=== PATIENT | male | born 1950 | race Caucasian/White ===

== ENCOUNTER 2018-07-21 11:15 | Day surgery (SDC) | payer MEDICARE, MEDICAID ==
[~2018-07-21 11:15] MED LIST: DOCU100C40 PO; NO HOME MEDS
[2018-07-21] MEDS ORDERED: D-MA1POW (12:32)
--- NOTE | 2018-07-21 13:00 | NUR ---
Patient arrived via wheelchair from [facility] and was admitted to outpatient wound care for physician visit with Jose Espinoza MD. Dressing removed, wound cleansed. New patient assessment completed with review of patient's medical history and current medications. Patient denies wounds to any other areas than his right ischium and left ankle and right heel. States he has a caregiver at home who assists him with dressings and ADLs. 1200 - Dr. Espinoza at bedside accompanied by RN. Wound assessed, time out performed by MD/RN. Wound debrided as detailed in the physician progress/procedure note. Plan of care discussed with patient. Dressings placed per MD orders. Patient instructed on the signs and symptoms of infection and to call the Wound Center if any occur or to go to the ED if we are closed: Increased pain in wound Increase in drainage from the wound Redness in the skin surrounding the wound Bleeding from the wound Temperature of 101 or greater Patient instructed that the weight of their body puts a large amount of pressure on their wounds. This pressure keeps the new tissue from growing and inhibits new blood vessels from forming. Explained that, if they continue to bear weight on a body part that has a wound, the time it takes to heal the wound increases, the wound may get worse or the wound may not heal at all. Patient verbalized understanding of all discharge instructions and plan of care and exited via wheelchair out to [facility] in stable condition with no sign or symptom of distress at time of discharge.
== END 2018-07-21 13:23 | disposition home or self-care (01) ==
LOC: WOUND CARE 11:15
PROVIDERS: ATTEND Surgery
DX: L89.314 Pressure ulcer of right buttock, stage 4 (principal); S91.301A Unspecified open wound, right foot, initial encounter; S91.002A Unspecified open wound, left ankle, initial encounter; G82.20 Paraplegia, unspecified; F12.10 Cannabis abuse, uncomplicated; Z98.890 Other specified postprocedural states; Z87.891 Personal history of nicotine dependence; Z90.49 Acquired absence of other specified parts of digestive tract; X58.XXXA Exposure to other specified factors, initial encounter; Y93.89 Activity, other specified; Y92.89 Other specified places as the place of occurrence of the external cause; Y99.8 Other external cause status
CPT/HCPCS: 87070; 87075; 87076; 87077; 87102; 87185; 87186; A6212; A6243

== ENCOUNTER 2018-07-24 10:30 | Day surgery (SDC) | payer MEDICARE, MEDICAID ==
[~2018-07-24 10:30] MED LIST changes: +D-MA1POW
--- NOTE | 2018-07-24 13:00 | NUR ---
Patient arrived via wheelchair accompanied by friend Thomas from [facility] and was admitted to outpatient wound care for physician visit with Jose Espinoza MD. Dressing removed, wound cleansed Patient assessed for changes in conditions, medications and medical history. 1245 - Dr. Espinoza at bedside accompanied by RN. Wound assessed, time out performed by MD/RN. Wound debrided as detailed in the physician progress/procedure note. Plan of care discussed with patient. Dressings placed per MD orders. Patient instructed on the signs and symptoms of infection and to call the Wound Center if any occur or to go to the ED if we are closed: Increased pain in wound Increase in drainage from the wound Redness in the skin surrounding the wound Bleeding from the wound Temperature of 101 or greater Patient instructed that the weight of their body puts a large amount of pressure on their wounds. This pressure keeps the new tissue from growing and inhibits new blood vessels from forming. Explained that, if they continue to bear weight on a body part that has a wound, the time it takes to heal the wound increases, the wound may get worse or the wound may not heal at all. Patient verbalized understanding of all discharge instructions and plan of care and exited via wheelchair accompanied by Thomas out to [facility] in stable condition with no sign or symptom of distress at time of discharge. Antibiotics called in by RN to [facility]. CT arranged with scheduling/household appliances service technician.
[2018-07-24] MEDS ORDERED: LEVO750T21 PO (15:01)
== END 2018-07-24 11:45 | disposition home or self-care (01) ==
LOC: WOUND CARE 10:30
PROVIDERS: ATTEND Surgery
DX: L89.314 Pressure ulcer of right buttock, stage 4 (principal); L97.321 Non-pressure chronic ulcer of left ankle limited to breakdown of skin; L97.511 Non-pressure chronic ulcer of other part of right foot limited to breakdown of skin; G82.20 Paraplegia, unspecified; F12.10 Cannabis abuse, uncomplicated; Z98.890 Other specified postprocedural states; Z87.891 Personal history of nicotine dependence; Z90.49 Acquired absence of other specified parts of digestive tract
CPT/HCPCS: 97597; A6266; A4414; A6212; A6213

== ENCOUNTER 2018-07-29 09:00 | Outpatient (CLI) | payer MEDICARE, MEDICAID ==
[~2018-07-29 09:00] MED LIST changes: -DOCU100C40 PO; +LEVO750T21 PO; -NO HOME MEDS
[2018-07-29] MEDS ORDERED: LIDOcaine/PRILOcaine 5gm cream TP ONE (11:19)
--- NOTE | 2018-07-29 14:12 | NUR ---
[facility] Patient admitted to outpatient wound care clinic for physician visit with Jose Espinoza MD. Dressing removed, wound cleansed and Emla cream applied per order. Patient assessed for changes in conditions, medications and medical history. Dr. Espinoza at bedside accompanied by RN. Wound assessed and no debridement was done. Plan of care discussed with patient. Dressings placed per MD orders. Patient instructed on the signs and symptoms of infection and to call the Wound Center if any occur or to go to the ED if we are closed: Increased pain in wound Increase in drainage from the wound Redness in the skin surrounding the wound Bleeding from the wound Temperature of 101 or greater Patient instructed that the weight of their body puts a large amount of pressure on their wounds. This pressure keeps the new tissue from growing and inhibits new blood vessels from forming. Explained that, if they continue to bear weight on a body part that has a wound, the time it takes to heal the wound increases, the wound may get worse or the wound may not heal at all. Patient verbalized understanding of all discharge instructions and plan of care. Patient left in stable condition with no sign or symptom of distress at time of discharge. Addendum: 07/29/18 at 1415 by Susan Boothe RN Amended: Links added.
== END 2018-07-29 12:48 | disposition home or self-care (01) ==
LOC: WOUND CARE 09:00 → EDSTATUS 10:30 → WOUND CARE 12:48
PROVIDERS: ATTEND Surgery
DX: L89.314 Pressure ulcer of right buttock, stage 4 (principal); L97.321 Non-pressure chronic ulcer of left ankle limited to breakdown of skin; L97.511 Non-pressure chronic ulcer of other part of right foot limited to breakdown of skin; L97.411 Non-pressure chronic ulcer of right heel and midfoot limited to breakdown of skin; G82.20 Paraplegia, unspecified; F12.10 Cannabis abuse, uncomplicated; Z98.890 Other specified postprocedural states; Z87.891 Personal history of nicotine dependence; Z90.49 Acquired absence of other specified parts of digestive tract
CPT/HCPCS: A6266; G0463; A6021; A6206; A6212; A6243

== ENCOUNTER 2018-07-31 08:37 | Outpatient (CLI) | payer MEDICARE, MEDICAID ==
[2018-07-31] MEDS ORDERED: diatrozoate meglu/diatrozoate sod (37% iodine) 120ML oral solution ONE (09:24)
--- NOTE | 2018-07-31 11:30 | NUR ---
Patient arrived via wheelchair accompanied by his brother from [facility] and was admitted to outpatient wound care for physician visit with Jose Espinoza MD. Dressing removed, wound cleansed. Patient assessed for changes in conditions, medications and medical history. 1025 - Dr. Espinoza at bedside accompanied by RN. Wound assessed, time out performed by MD/RN. Procedure performed as detailed in the physician progress/procedure note. Plan of care discussed with patient. Dressings placed per MD orders. Patient instructed on the signs and symptoms of infection and to call the Wound Center if any occur or to go to the ED if we are closed: Increased pain in wound Increase in drainage from the wound Redness in the skin surrounding the wound Bleeding from the wound Temperature of 101 or greater Patient instructed that the weight of their body puts a large amount of pressure on their wounds. This pressure keeps the new tissue from growing and inhibits new blood vessels from forming. Explained that, if they continue to bear weight on a body part that has a wound, the time it takes to heal the wound increases, the wound may get worse or the wound may not heal at all. Patient verbalized understanding of all discharge instructions and plan of care and exited via wheelchair accompanied by his brother out to [facility] in stable condition with no sign or symptom of distress at time of discharge.
== END 2018-07-31 11:51 | disposition home or self-care (01) ==
LOC: WOUND CARE 08:37
PROVIDERS: ATTEND Surgery
DX: L89.314 Pressure ulcer of right buttock, stage 4 (principal); L97.321 Non-pressure chronic ulcer of left ankle limited to breakdown of skin; L97.511 Non-pressure chronic ulcer of other part of right foot limited to breakdown of skin; L97.411 Non-pressure chronic ulcer of right heel and midfoot limited to breakdown of skin; G82.20 Paraplegia, unspecified; F12.10 Cannabis abuse, uncomplicated; Z98.890 Other specified postprocedural states; Z87.891 Personal history of nicotine dependence; Z90.49 Acquired absence of other specified parts of digestive tract
CPT/HCPCS: 72192; A6266; G0463; Q9963; A6021; A6212

== ENCOUNTER 2018-08-04 11:34 | Day surgery (SDC) | payer MEDICARE, MEDICAID ==
--- NOTE | 2018-08-04 17:11 | NUR ---
1130 Patient entered safely into [facility] via his w/c with his brother. Patient admitted to outpatient wound care clinic for follow-up visit with physician. Patient placed in isolation per isolation protocol. Dressing removed, wound cleansed. Patient assessed for changes in conditions, medications and medical history. Patient showed no s/s of distress at time of assessment. 1245 at bedside accompanied by RN. Wounds assessed, time out performed and debridement done today as detailed in the physician progress/procedure note. Plan of care discussed with patient. Dressings placed per MD orders. Patient refuses to take Levaquin because it made him sick to his stomach. Dr Espinoza aware, no new orders at this time. Patient instructed on the signs and symptoms of infection and to call the Wound Center if any occur or to go to the ED if we are closed: Increased pain in wound Increase in drainage from the wound Redness in the skin surrounding the wound Bleeding from the wound Temperature of 101 or greater Patient instructed that the weight of their body puts a large amount of pressure on their wounds. This pressure keeps the new tissue from growing and inhibits new blood vessels from forming. Explained that, if they continue to bear weight on a body part that has a wound, the time it takes to heal the wound increases, the wound may get worse or the wound may not heal at all. Patient verbalized understanding of all discharge instructions and plan of care. Patient ambulated independently out to [facility] and is in stable condition with no sign or symptom of distress at time of discharge.
== END 2018-08-04 13:40 | disposition home or self-care (01) ==
LOC: WOUND CARE 11:34
PROVIDERS: ATTEND Surgery
DX: L89.314 Pressure ulcer of right buttock, stage 4 (principal); L97.321 Non-pressure chronic ulcer of left ankle limited to breakdown of skin; L97.511 Non-pressure chronic ulcer of other part of right foot limited to breakdown of skin; L97.411 Non-pressure chronic ulcer of right heel and midfoot limited to breakdown of skin; G82.20 Paraplegia, unspecified; F12.10 Cannabis abuse, uncomplicated; Z98.890 Other specified postprocedural states; Z87.891 Personal history of nicotine dependence; Z90.49 Acquired absence of other specified parts of digestive tract
CPT/HCPCS: 97597; A6266; A6243

== ENCOUNTER 2018-08-07 11:50 | Day surgery (SDC) | payer MEDICARE, MEDICAID ==
[~2018-08-07 11:50] MED LIST changes: -LEVO750T21 PO
--- NOTE | 2018-08-07 13:30 | NUR ---
Patient arrived via wheelchair from [facility] and was admitted to outpatient wound care for physician visit with Jose Espinoza MD. Transferred from [facility] to [facility] by staff members. Dressing removed, wound cleansed. Patient assessed for changes in conditions, medications and medical history. 1240 - Dr. Espinoza at bedside accompanied by RN. Wound assessed, time out performed by MD/RN. Wound debrided as detailed in the physician progress/procedure note. Plan of care discussed with patient. Dressings placed per MD orders. Patient instructed on the signs and symptoms of infection and to call the Wound Center if any occur or to go to the ED if we are closed: Increased pain in wound Increase in drainage from the wound Redness in the skin surrounding the wound Bleeding from the wound Temperature of 101 or greater Patient instructed that the weight of their body puts a large amount of pressure on their wounds. This pressure keeps the new tissue from growing and inhibits new blood vessels from forming. Explained that, if they continue to bear weight on a body part that has a wound, the time it takes to heal the wound increases, the wound may get worse or the wound may not heal at all. Patient verbalized understanding of all discharge instructions and plan of care and was transferred from [facility] to [facility] by staff and drove independently out to [facility] in stable condition with no sign or symptom of distress at time of discharge.
== END 2018-08-07 13:40 | disposition home or self-care (01) ==
LOC: WOUND CARE 11:50
PROVIDERS: ATTEND Surgery
DX: L89.314 Pressure ulcer of right buttock, stage 4 (principal); L97.321 Non-pressure chronic ulcer of left ankle limited to breakdown of skin; L97.511 Non-pressure chronic ulcer of other part of right foot limited to breakdown of skin; L97.411 Non-pressure chronic ulcer of right heel and midfoot limited to breakdown of skin; G82.20 Paraplegia, unspecified; F12.10 Cannabis abuse, uncomplicated; Z98.890 Other specified postprocedural states; Z87.891 Personal history of nicotine dependence; Z90.49 Acquired absence of other specified parts of digestive tract
CPT/HCPCS: 97597; A6266; A6021; A6206; A6212

== ENCOUNTER 2018-08-11 09:10 | Day surgery (SDC) | payer MEDICARE, MEDICAID ==
--- NOTE | 2018-08-11 15:19 | NUR ---
Patient arrived safely into [facility] via wheelchair. Patient admitted to outpatient wound care clinic for physician visit with Jose Espinoza MD. Dressings removed and wounds cleansed. Patient assessed for changes in conditions, medications and medical history. Dr. Espinoza at bedside accompanied by RN. Wound assessed, time out performed by MD/RN. Wound debrided as detailed in the physician progress/procedure note. Plan of care discussed with patient. Dressings placed per MD orders. Patient instructed on the signs and symptoms of infection and to call the Wound Center if any occur or to go to the ED if we are closed: Increased pain in wound Increase in drainage from the wound Redness in the skin surrounding the wound Bleeding from the wound Temperature of 101 or greater Patient instructed that the weight of their body puts a large amount of pressure on their wounds. This pressure keeps the new tissue from growing and inhibits new blood vessels from forming. Explained that, if they continue to bear weight on a body part that has a wound, the time it takes to heal the wound increases, the wound may get worse or the wound may not heal at all. Patient verbalized understanding of all discharge instructions and plan of care. Patient left in stable condition with no sign or symptom of distress at time of discharge. Addendum: 08/11/18 at 1523 by Susan Boothe RN Amended: Links added.
== END 2018-08-11 12:10 | disposition home or self-care (01) ==
LOC: WOUND CARE 09:10
PROVIDERS: ATTEND Surgery
DX: L89.314 Pressure ulcer of right buttock, stage 4 (principal); L89.612 Pressure ulcer of right heel, stage 2; L89.512 Pressure ulcer of right ankle, stage 2; L97.411 Non-pressure chronic ulcer of right heel and midfoot limited to breakdown of skin; L97.321 Non-pressure chronic ulcer of left ankle limited to breakdown of skin; G82.20 Paraplegia, unspecified; M86.8X8 Other osteomyelitis, other site; F12.10 Cannabis abuse, uncomplicated; Z98.890 Other specified postprocedural states; Z87.891 Personal history of nicotine dependence; Z90.49 Acquired absence of other specified parts of digestive tract
CPT/HCPCS: 11044; A6266; A6021; A6212; A6243

== ENCOUNTER 2018-08-14 10:00 | Day surgery (SDC) | payer MEDICARE, MEDICAID ==
--- NOTE | 2018-08-14 13:00 | NUR ---
Patient arrived via wheelchair independently from [facility] and was admitted to outpatient wound care for physician visit with Jose Espinoza MD. Transferred from [facility] to [facility] by staff. Dressing removed, wound cleansed. Patient assessed for changes in conditions, medications and medical history. 1220 - Dr. Espinoza at bedside accompanied by RN. Wound assessed, time out performed by MD/RN. Wound debrided as detailed in the physician progress/procedure note. Plan of care discussed with patient. Dressings placed per MD orders. Patient instructed on the signs and symptoms of infection and to call the Wound Center if any occur or to go to the ED if we are closed: Increased pain in wound Increase in drainage from the wound Redness in the skin surrounding the wound Bleeding from the wound Temperature of 101 or greater Patient instructed that the weight of their body puts a large amount of pressure on their wounds. This pressure keeps the new tissue from growing and inhibits new blood vessels from forming. Explained that, if they continue to bear weight on a body part that has a wound, the time it takes to heal the wound increases, the wound may get worse or the wound may not heal at all. Patient verbalized understanding of all discharge instructions and plan of care and exited via wheelchair independently out to [facility] in stable condition with no sign or symptom of distress at time of discharge.
== END 2018-08-14 13:12 | disposition home or self-care (01) ==
LOC: WOUND CARE 10:00
PROVIDERS: ATTEND Surgery
DX: L89.314 Pressure ulcer of right buttock, stage 4 (principal); L89.612 Pressure ulcer of right heel, stage 2; L89.512 Pressure ulcer of right ankle, stage 2; L97.411 Non-pressure chronic ulcer of right heel and midfoot limited to breakdown of skin; L97.321 Non-pressure chronic ulcer of left ankle limited to breakdown of skin; G82.20 Paraplegia, unspecified; M86.8X8 Other osteomyelitis, other site; F12.10 Cannabis abuse, uncomplicated; Z98.890 Other specified postprocedural states; Z87.891 Personal history of nicotine dependence; Z90.49 Acquired absence of other specified parts of digestive tract
CPT/HCPCS: 97597; A6222; A6266; A6021; A6206; A6212

== ENCOUNTER 2018-08-18 09:50 | Day surgery (SDC) | payer MEDICARE, MEDICAID ==
--- NOTE | 2018-08-18 13:00 | NUR ---
Patient arrived via wheelchair from [facility] and was admitted to outpatient wound care for physician visit with Jose Espinoza MD. Transferred from his wheelchair to [facility] with [employer] by 2 staff members. Dressing removed, wound cleansed. Patient assessed for changes in conditions, medications and medical history. 1130 - Dr. Espinoza at bedside accompanied by RN. Wound assessed, time out performed by MD/RN. Wound debrided as detailed in the physician progress/procedure note. Plan of care discussed with patient. Dressings placed per MD orders. Patient instructed on the signs and symptoms of infection and to call the Wound Center if any occur or to go to the ED if we are closed: Increased pain in wound Increase in drainage from the wound Redness in the skin surrounding the wound Bleeding from the wound Temperature of 101 or greater Patient instructed that the weight of their body puts a large amount of pressure on their wounds. This pressure keeps the new tissue from growing and inhibits new blood vessels from forming. Explained that, if they continue to bear weight on a body part that has a wound, the time it takes to heal the wound increases, the wound may get worse or the wound may not heal at all. Patient verbalized understanding of all discharge instructions and plan of care and exited via wheelchair to meet his brother to [facility] in stable condition with no sign or symptom of distress at time of discharge.
== END 2018-08-18 12:30 | disposition home or self-care (01) ==
LOC: WOUND CARE 09:50
PROVIDERS: ATTEND Surgery
DX: L89.314 Pressure ulcer of right buttock, stage 4 (principal); L89.612 Pressure ulcer of right heel, stage 2; L89.522 Pressure ulcer of left ankle, stage 2; L97.411 Non-pressure chronic ulcer of right heel and midfoot limited to breakdown of skin; L97.321 Non-pressure chronic ulcer of left ankle limited to breakdown of skin; G82.20 Paraplegia, unspecified; M86.8X8 Other osteomyelitis, other site; F12.10 Cannabis abuse, uncomplicated; Z98.890 Other specified postprocedural states; Z87.891 Personal history of nicotine dependence; Z90.49 Acquired absence of other specified parts of digestive tract
CPT/HCPCS: 97597; A6021; A6206; A6212

== ENCOUNTER 2018-09-15 10:15 | Day surgery (SDC) | payer MEDICARE, MEDICAID ==
[~2018-09-15 10:15] MED LIST changes: -D-MA1POW; +MAGN400C PO; +POTA20TA19 PO
--- NOTE | 2018-09-15 13:00 | NUR ---
Patient rrived via wheelchair from [facility] and was admitted to outpatient wound care for physician visit with Jose Espinoza MD. Transferred via [employer] [facility] from [facility] to [facility] by 2 staff members. Dressing removed, wound cleansed. Patient assessed for changes in conditions, medications and medical history. 1200 - Dr. Espinoza at bedside accompanied by RN. Wound assessed, time out performed by MD/RN. Wound debrided as detailed in the physician progress/procedure note. Plan of care discussed with patient. Dressings placed per MD orders. Patient instructed on the signs and symptoms of infection and to call the Wound Center if any occur or to go to the ED if we are closed: Increased pain in wound Increase in drainage from the wound Redness in the skin surrounding the wound Bleeding from the wound Temperature of 101 or greater Patient instructed that the weight of their body puts a large amount of pressure on their wounds. This pressure keeps the new tissue from growing and inhibits new blood vessels from forming. Explained that, if they continue to bear weight on a body part that has a wound, the time it takes to heal the wound increases, the wound may get worse or the wound may not heal at all. Patient verbalized understanding of all discharge instructions and plan of care and is transferred to his wheelchair by [employer] by staff and drove independently out to [facility] in stable condition with no sign or symptom of distress at time of discharge.
== END 2018-09-15 12:40 | disposition home or self-care (01) ==
LOC: WOUND CARE 10:15
PROVIDERS: ATTEND Surgery
DX: L89.314 Pressure ulcer of right buttock, stage 4 (principal); L89.612 Pressure ulcer of right heel, stage 2; L89.522 Pressure ulcer of left ankle, stage 2; L97.411 Non-pressure chronic ulcer of right heel and midfoot limited to breakdown of skin; L97.321 Non-pressure chronic ulcer of left ankle limited to breakdown of skin; G82.20 Paraplegia, unspecified; M86.8X8 Other osteomyelitis, other site; F12.10 Cannabis abuse, uncomplicated; Z98.890 Other specified postprocedural states; Z87.891 Personal history of nicotine dependence; Z90.49 Acquired absence of other specified parts of digestive tract
CPT/HCPCS: 97597; A4663; A6021; A6154; A6212

== ENCOUNTER 2018-09-22 10:13 | Day surgery (SDC) | payer MEDICARE, MEDICAID ==
--- NOTE | 2018-09-22 13:48 | NUR ---
Patient ambulated independently from lobby in own w/c and was admitted to outpatient wound care for physician visit. Dressings removed, wound cleansed. Patient assessment completed with review of patient's medical history and current medications. Michael Espinoza at bedside accompanied by RN. Wound assessed, time-out performed by MD/RN. Wound debrided as detailed in the physician progress/procedure note. Plan of care discussed with patient. Dressings placed per MD orders. Patient instructed on the signs and symptoms of infection and to call the Wound Center if any occur or to go to the ED if we are closed: Increased pain in the wound Increase in drainage from the wound Redness in the skin surrounding the wound Bleeding from the wound Temperature of 101F or greater Patient instructed that the weight of their body puts a large amount of pressure on their wounds. This pressure keeps the new tissue from growing and inhibits new blood vessels from forming. Explained that, if they continue to bear weight on a body part that has a wound, the time it takes to heal the wound increases, the wound may get worse, or the wound may not heal at all. Patient verbalized understanding of all discharge instructions and plan of care. Patient in own w/c independently out to [facility] in stable condition with no signs or symptoms of distress at time of discharge.
[2018-12-14] MEDS ORDERED: NO HOME MEDS (19:37)
== END 2018-09-22 11:50 | disposition home or self-care (01) ==
LOC: WOUND CARE 10:13
PROVIDERS: ATTEND Surgery
DX: L89.314 Pressure ulcer of right buttock, stage 4 (principal); L89.612 Pressure ulcer of right heel, stage 2; L89.522 Pressure ulcer of left ankle, stage 2; L97.411 Non-pressure chronic ulcer of right heel and midfoot limited to breakdown of skin; L97.321 Non-pressure chronic ulcer of left ankle limited to breakdown of skin; G82.20 Paraplegia, unspecified; M86.8X8 Other osteomyelitis, other site; F12.10 Cannabis abuse, uncomplicated; Z98.890 Other specified postprocedural states; Z87.891 Personal history of nicotine dependence; Z90.49 Acquired absence of other specified parts of digestive tract; Z79.899 Other long term (current) drug therapy
CPT/HCPCS: 97597; A4663; A6021; A6212

== ENCOUNTER 2018-09-29 10:35 | Day surgery (SDC) | payer MEDICARE, MEDICAID ==
--- NOTE | 2018-09-29 13:52 | NUR ---
Patient ambulated independently from [facility] and was admitted to outpatient wound care for physician visit. Dressings removed, wound cleansed. Patient assessment completed with review of patient's medical history and current medications. Mookie Espinoza at bedside accompanied by RN. Wound assessed, time-out performed by MD/RN. Wound debrided as detailed in the physician progress/procedure note. Plan of care discussed with patient. Dressings placed per MD orders. Patient instructed on the signs and symptoms of infection and to call the Wound Center if any occur or to go to the ED if we are closed: Increased pain in the wound Increase in drainage from the wound Redness in the skin surrounding the wound Bleeding from the wound Temperature of 101F or greater Patient instructed that the weight of their body puts a large amount of pressure on their wounds. This pressure keeps the new tissue from growing and inhibits new blood vessels from forming. Explained that, if they continue to bear weight on a body part that has a wound, the time it takes to heal the wound increases, the wound may get worse, or the wound may not heal at all. Patient verbalized understanding of all discharge instructions and plan of care. Patient ambulated independently out to [facility] in stable condition with no signs or symptoms of distress at time of discharge.
[2018-12-14] MEDS ORDERED: NO HOME MEDS (19:37)
== END 2018-09-29 12:40 | disposition home or self-care (01) ==
LOC: WOUND CARE 10:35
PROVIDERS: ATTEND Surgery
DX: L89.314 Pressure ulcer of right buttock, stage 4 (principal); L89.612 Pressure ulcer of right heel, stage 2; L89.522 Pressure ulcer of left ankle, stage 2; L97.411 Non-pressure chronic ulcer of right heel and midfoot limited to breakdown of skin; L97.321 Non-pressure chronic ulcer of left ankle limited to breakdown of skin; G82.20 Paraplegia, unspecified; M86.8X8 Other osteomyelitis, other site; F12.10 Cannabis abuse, uncomplicated; Z98.890 Other specified postprocedural states; Z87.891 Personal history of nicotine dependence; Z90.49 Acquired absence of other specified parts of digestive tract; Z79.899 Other long term (current) drug therapy
CPT/HCPCS: 97597

== ENCOUNTER 2018-10-07 10:10 | Outpatient (CLI) | payer MEDICARE, MEDICAID ==
[~2018-10-07 10:10] MED LIST changes: -POTA20TA19 PO
[2018-12-14] MEDS ORDERED: NO HOME MEDS (19:37)
== END 2018-10-07 11:45 | disposition home or self-care (01) ==
LOC: WOUND CARE 10:10 → EDSTATUS 10:30 → WOUND CARE 11:45
PROVIDERS: ATTEND Surgery
DX: L89.314 Pressure ulcer of right buttock, stage 4 (principal); L89.612 Pressure ulcer of right heel, stage 2; L89.522 Pressure ulcer of left ankle, stage 2; L97.411 Non-pressure chronic ulcer of right heel and midfoot limited to breakdown of skin; L97.321 Non-pressure chronic ulcer of left ankle limited to breakdown of skin; G82.20 Paraplegia, unspecified; M86.8X8 Other osteomyelitis, other site; F12.10 Cannabis abuse, uncomplicated; Z98.890 Other specified postprocedural states; Z87.891 Personal history of nicotine dependence; Z90.49 Acquired absence of other specified parts of digestive tract; Z79.899 Other long term (current) drug therapy
CPT/HCPCS: A4663; A6021; A6154; A6212; A6213; G0463

== ENCOUNTER 2018-10-13 10:15 | Day surgery (SDC) | payer MEDICARE, MEDICAID ==
[2018-12-14] MEDS ORDERED: NO HOME MEDS (19:37)
== END 2018-10-13 12:00 | disposition home or self-care (01) ==
LOC: WOUND CARE 10:15
PROVIDERS: ATTEND Surgery
DX: L89.314 Pressure ulcer of right buttock, stage 4 (principal); L89.612 Pressure ulcer of right heel, stage 2; L89.522 Pressure ulcer of left ankle, stage 2; L97.411 Non-pressure chronic ulcer of right heel and midfoot limited to breakdown of skin; L97.321 Non-pressure chronic ulcer of left ankle limited to breakdown of skin; G82.20 Paraplegia, unspecified; M86.8X8 Other osteomyelitis, other site; F12.10 Cannabis abuse, uncomplicated; Z98.890 Other specified postprocedural states; Z87.891 Personal history of nicotine dependence; Z90.49 Acquired absence of other specified parts of digestive tract; Z79.899 Other long term (current) drug therapy
CPT/HCPCS: 97597; A6446; A4663; A6021; A6154; A6212

== ENCOUNTER 2018-10-20 10:30 | Day surgery (SDC) | payer MEDICARE, MEDICAID ==
[2018-10-20] MEDS ORDERED: nystatin/triamcinolone cream 15gm TP ONE (12:12)
[2018-12-14] MEDS ORDERED: NO HOME MEDS (19:37)
== END 2018-10-20 12:45 | disposition home or self-care (01) ==
LOC: WOUND CARE 10:30
PROVIDERS: ATTEND Surgery
DX: L89.314 Pressure ulcer of right buttock, stage 4 (principal); L89.612 Pressure ulcer of right heel, stage 2; L89.522 Pressure ulcer of left ankle, stage 2; L97.411 Non-pressure chronic ulcer of right heel and midfoot limited to breakdown of skin; L97.321 Non-pressure chronic ulcer of left ankle limited to breakdown of skin; G82.20 Paraplegia, unspecified; M86.8X8 Other osteomyelitis, other site; F12.10 Cannabis abuse, uncomplicated; Z98.890 Other specified postprocedural states; Z87.891 Personal history of nicotine dependence; Z90.49 Acquired absence of other specified parts of digestive tract; Z79.899 Other long term (current) drug therapy
CPT/HCPCS: 97597; J7999; A4663; A6021; A6154; A6212

== ENCOUNTER 2018-10-27 10:20 | Day surgery (SDC) | payer MEDICARE, MEDICAID ==
[2018-10-27] MEDS ORDERED: LIDOcaine 2% 5ml jelly ONE ×2 (11:56→11:57)
[2018-12-14] MEDS ORDERED: NO HOME MEDS (19:37)
== END 2018-10-27 13:10 | disposition home or self-care (01) ==
LOC: WOUND CARE 10:20
PROVIDERS: ATTEND Surgery
DX: L89.314 Pressure ulcer of right buttock, stage 4 (principal); L89.612 Pressure ulcer of right heel, stage 2; L89.522 Pressure ulcer of left ankle, stage 2; L97.411 Non-pressure chronic ulcer of right heel and midfoot limited to breakdown of skin; L97.321 Non-pressure chronic ulcer of left ankle limited to breakdown of skin; G82.20 Paraplegia, unspecified; M86.8X8 Other osteomyelitis, other site; F12.10 Cannabis abuse, uncomplicated; Z98.890 Other specified postprocedural states; Z87.891 Personal history of nicotine dependence; Z90.49 Acquired absence of other specified parts of digestive tract; Z79.899 Other long term (current) drug therapy
CPT/HCPCS: 97597; A4663; A6021; A6154; A6212

== ENCOUNTER 2018-11-06 10:45 | Day surgery (SDC) | payer MEDICARE, MEDICAID ==
[2018-11-06] MEDS ORDERED: nystatin/triamcinolone cream 15gm TP ONE (12:29)
[2018-12-14] MEDS ORDERED: NO HOME MEDS (19:37)
== END 2018-11-06 12:49 | disposition home or self-care (01) ==
LOC: WOUND CARE 10:45
PROVIDERS: ATTEND Surgery
DX: L89.314 Pressure ulcer of right buttock, stage 4 (principal); L89.612 Pressure ulcer of right heel, stage 2; L89.522 Pressure ulcer of left ankle, stage 2; L97.411 Non-pressure chronic ulcer of right heel and midfoot limited to breakdown of skin; L97.321 Non-pressure chronic ulcer of left ankle limited to breakdown of skin; G82.20 Paraplegia, unspecified; M86.8X8 Other osteomyelitis, other site; F12.10 Cannabis abuse, uncomplicated; Z98.890 Other specified postprocedural states; Z87.891 Personal history of nicotine dependence; Z90.49 Acquired absence of other specified parts of digestive tract; Z79.899 Other long term (current) drug therapy
CPT/HCPCS: 97597; J7999; A4663; A6021; A6154; A6212

== ENCOUNTER 2018-11-10 10:30 | Day surgery (SDC) | payer MEDICARE, MEDICAID ==
[2018-11-10] MEDS ORDERED: nystatin/triamcinolone cream 15gm TP ONE (12:05)
[2018-12-14] MEDS ORDERED: NO HOME MEDS (19:37)
== END 2018-11-10 12:35 | disposition home or self-care (01) ==
LOC: WOUND CARE 10:30
PROVIDERS: ATTEND Surgery
DX: L89.314 Pressure ulcer of right buttock, stage 4 (principal); L89.612 Pressure ulcer of right heel, stage 2; L89.522 Pressure ulcer of left ankle, stage 2; L97.411 Non-pressure chronic ulcer of right heel and midfoot limited to breakdown of skin; L97.321 Non-pressure chronic ulcer of left ankle limited to breakdown of skin; G82.20 Paraplegia, unspecified; M86.8X8 Other osteomyelitis, other site; F12.10 Cannabis abuse, uncomplicated; Z98.890 Other specified postprocedural states; Z87.891 Personal history of nicotine dependence; Z90.49 Acquired absence of other specified parts of digestive tract; Z79.899 Other long term (current) drug therapy
CPT/HCPCS: 97597; J7999; A4663; A6021; A6154; A6212

== ENCOUNTER 2018-11-18 10:35 | Day surgery (SDC) | payer MEDICARE, MEDICAID ==
[2018-12-14] MEDS ORDERED: NO HOME MEDS (19:37)
== END 2018-11-18 12:46 | disposition home or self-care (01) ==
LOC: WOUND CARE 10:35
PROVIDERS: ATTEND Surgery
DX: L89.314 Pressure ulcer of right buttock, stage 4 (principal); L89.612 Pressure ulcer of right heel, stage 2; L89.522 Pressure ulcer of left ankle, stage 2; L97.411 Non-pressure chronic ulcer of right heel and midfoot limited to breakdown of skin; L97.321 Non-pressure chronic ulcer of left ankle limited to breakdown of skin; G82.20 Paraplegia, unspecified; M86.8X8 Other osteomyelitis, other site; F12.10 Cannabis abuse, uncomplicated; Z98.890 Other specified postprocedural states; Z87.891 Personal history of nicotine dependence; Z90.49 Acquired absence of other specified parts of digestive tract; Z79.899 Other long term (current) drug therapy
CPT/HCPCS: 97597; A4663; A6021; A6154; A6212

== ENCOUNTER 2018-11-24 10:30 | Day surgery (SDC) | payer MEDICARE, MEDICAID ==
[2018-12-14] MEDS ORDERED: NO HOME MEDS (19:37)
== END 2018-11-24 12:31 | disposition home or self-care (01) ==
LOC: WOUND CARE 10:30
PROVIDERS: ATTEND Surgery
DX: L89.314 Pressure ulcer of right buttock, stage 4 (principal); L89.522 Pressure ulcer of left ankle, stage 2; L97.321 Non-pressure chronic ulcer of left ankle limited to breakdown of skin; L98.412 Non-pressure chronic ulcer of buttock with fat layer exposed; G82.20 Paraplegia, unspecified; M86.8X8 Other osteomyelitis, other site; F12.10 Cannabis abuse, uncomplicated; Z98.890 Other specified postprocedural states; Z87.891 Personal history of nicotine dependence; Z90.49 Acquired absence of other specified parts of digestive tract; Z79.899 Other long term (current) drug therapy
CPT/HCPCS: A4663; A6021; A6154; A6212

== ENCOUNTER 2018-12-01 10:40 | Outpatient (CLI) | payer MEDICARE, MEDICAID ==
[2018-12-14] MEDS ORDERED: NO HOME MEDS (19:37)
== END 2018-12-01 11:50 | disposition home or self-care (01) ==
LOC: WOUND CARE 10:40
PROVIDERS: ATTEND Surgery
DX: L89.314 Pressure ulcer of right buttock, stage 4 (principal); L89.522 Pressure ulcer of left ankle, stage 2; L97.321 Non-pressure chronic ulcer of left ankle limited to breakdown of skin; L98.412 Non-pressure chronic ulcer of buttock with fat layer exposed; L03.116 Cellulitis of left lower limb; G82.20 Paraplegia, unspecified; M86.8X8 Other osteomyelitis, other site; F12.10 Cannabis abuse, uncomplicated; Z98.890 Other specified postprocedural states; Z87.891 Personal history of nicotine dependence; Z90.49 Acquired absence of other specified parts of digestive tract; Z79.899 Other long term (current) drug therapy
CPT/HCPCS: A6209; G0463; A4663; A6021; A6154; A6212; A6446

== ENCOUNTER 2018-12-08 10:27 | Day surgery (SDC) | payer MEDICARE, MEDICAID ==
[2018-12-14] MEDS ORDERED: NO HOME MEDS (19:37)
== END 2018-12-08 13:20 | disposition home or self-care (01) ==
LOC: WOUND CARE 10:27
PROVIDERS: ATTEND Surgery
DX: L89.314 Pressure ulcer of right buttock, stage 4 (principal); L89.522 Pressure ulcer of left ankle, stage 2; L97.321 Non-pressure chronic ulcer of left ankle limited to breakdown of skin; L98.412 Non-pressure chronic ulcer of buttock with fat layer exposed; L97.821 Non-pressure chronic ulcer of other part of left lower leg limited to breakdown of skin; L03.116 Cellulitis of left lower limb; G82.20 Paraplegia, unspecified; M86.8X8 Other osteomyelitis, other site; F12.10 Cannabis abuse, uncomplicated; Z98.890 Other specified postprocedural states; Z87.891 Personal history of nicotine dependence; Z90.49 Acquired absence of other specified parts of digestive tract; Z79.899 Other long term (current) drug therapy
CPT/HCPCS: 97597; A4663; A6196

== ENCOUNTER 2018-12-22 10:34 | Day surgery (SDC) | payer MEDICARE, MEDICAID ==
[~2018-12-22 10:34] MED LIST changes: -MAGN400C PO; +NO HOME MEDS
[2018-12-22] MEDS ORDERED: silver sulfadiazine cream 50gm TP ONE (12:13)
== END 2018-12-22 12:41 | disposition home or self-care (01) ==
LOC: WOUND CARE 10:34
PROVIDERS: ATTEND Surgery
DX: L89.314 Pressure ulcer of right buttock, stage 4 (principal); L89.522 Pressure ulcer of left ankle, stage 2; L89.890 Pressure ulcer of other site, unstageable; L89.623 Pressure ulcer of left heel, stage 3; L89.613 Pressure ulcer of right heel, stage 3; L89.892 Pressure ulcer of other site, stage 2; L97.321 Non-pressure chronic ulcer of left ankle limited to breakdown of skin; L98.412 Non-pressure chronic ulcer of buttock with fat layer exposed; L97.821 Non-pressure chronic ulcer of other part of left lower leg limited to breakdown of skin; L03.116 Cellulitis of left lower limb; G82.20 Paraplegia, unspecified; M86.8X8 Other osteomyelitis, other site; F12.10 Cannabis abuse, uncomplicated; Z98.890 Other specified postprocedural states; Z87.891 Personal history of nicotine dependence; Z90.49 Acquired absence of other specified parts of digestive tract; Z79.899 Other long term (current) drug therapy
CPT/HCPCS: 97597; A6223; A4663; A6212; A6446

== ENCOUNTER 2019-01-05 10:30 | Day surgery (SDC) | payer MEDICARE, MEDICAID ==
[2019-01-05] MEDS ORDERED: CADEXOMER IODINE TP ONE (12:42)
== END 2019-01-05 13:00 | disposition home or self-care (01) ==
LOC: WOUND CARE 10:30
PROVIDERS: ATTEND Surgery
DX: L89.314 Pressure ulcer of right buttock, stage 4 (principal); L89.522 Pressure ulcer of left ankle, stage 2; L89.890 Pressure ulcer of other site, unstageable; L89.623 Pressure ulcer of left heel, stage 3; L89.613 Pressure ulcer of right heel, stage 3; L89.892 Pressure ulcer of other site, stage 2; L97.321 Non-pressure chronic ulcer of left ankle limited to breakdown of skin; L98.412 Non-pressure chronic ulcer of buttock with fat layer exposed; L97.821 Non-pressure chronic ulcer of other part of left lower leg limited to breakdown of skin; L03.116 Cellulitis of left lower limb; G82.20 Paraplegia, unspecified; M86.8X8 Other osteomyelitis, other site; F12.10 Cannabis abuse, uncomplicated; Z98.890 Other specified postprocedural states; Z87.891 Personal history of nicotine dependence; Z90.49 Acquired absence of other specified parts of digestive tract; Z79.899 Other long term (current) drug therapy
CPT/HCPCS: 97597; A6223; A4663; A6021; A6213; A6446

== ENCOUNTER 2019-01-12 10:30 | Outpatient (CLI) | payer MEDICARE, MEDICAID ==
[2019-01-12] MEDS ORDERED: CADEXOMER IODINE TP ONE (13:04)
== END 2019-01-12 13:30 | disposition home or self-care (01) ==
LOC: EDSTATUS 10:30 → WOUND CARE 10:30
PROVIDERS: ATTEND Surgery
DX: L89.314 Pressure ulcer of right buttock, stage 4 (principal); L89.522 Pressure ulcer of left ankle, stage 2; L89.890 Pressure ulcer of other site, unstageable; L89.623 Pressure ulcer of left heel, stage 3; L89.613 Pressure ulcer of right heel, stage 3; L89.892 Pressure ulcer of other site, stage 2; L97.321 Non-pressure chronic ulcer of left ankle limited to breakdown of skin; L98.412 Non-pressure chronic ulcer of buttock with fat layer exposed; L97.821 Non-pressure chronic ulcer of other part of left lower leg limited to breakdown of skin; L03.116 Cellulitis of left lower limb; G82.20 Paraplegia, unspecified; M86.8X8 Other osteomyelitis, other site; F12.10 Cannabis abuse, uncomplicated; Z98.890 Other specified postprocedural states; Z87.891 Personal history of nicotine dependence; Z90.49 Acquired absence of other specified parts of digestive tract; Z79.899 Other long term (current) drug therapy
CPT/HCPCS: 93922; 93926; A6223; G0463; A4663; A6446

== ENCOUNTER 2019-01-26 11:20 | Outpatient (CLI) | payer MEDICARE, MEDICAID ==
[2019-01-26] MEDS ORDERED: CADEXOMER IODINE TP ONE (12:33)
== END 2019-01-26 13:10 | disposition home or self-care (01) ==
LOC: WOUND CARE 11:20
PROVIDERS: ATTEND Surgery
DX: L89.314 Pressure ulcer of right buttock, stage 4 (principal); L89.522 Pressure ulcer of left ankle, stage 2; L89.890 Pressure ulcer of other site, unstageable; L89.623 Pressure ulcer of left heel, stage 3; L89.613 Pressure ulcer of right heel, stage 3; L89.892 Pressure ulcer of other site, stage 2; L97.321 Non-pressure chronic ulcer of left ankle limited to breakdown of skin; L98.412 Non-pressure chronic ulcer of buttock with fat layer exposed; L97.821 Non-pressure chronic ulcer of other part of left lower leg limited to breakdown of skin; L03.116 Cellulitis of left lower limb; G82.20 Paraplegia, unspecified; M86.8X8 Other osteomyelitis, other site; F12.10 Cannabis abuse, uncomplicated; Z98.890 Other specified postprocedural states; Z87.891 Personal history of nicotine dependence; Z90.49 Acquired absence of other specified parts of digestive tract; Z79.899 Other long term (current) drug therapy
CPT/HCPCS: A6223; G0463; 97597; A4663; A6021; A6212; A6446

== ENCOUNTER 2019-03-09 10:00 | Day surgery (SDC) | payer MEDICARE, MEDICAID ==
[2019-03-09] MEDS ORDERED: CADEXOMER IODINE TP ONE (12:34)
== END 2019-03-09 13:05 | disposition home or self-care (01) ==
LOC: WOUND CARE 10:00
PROVIDERS: ATTEND Surgery
DX: L89.314 Pressure ulcer of right buttock, stage 4 (principal); L89.523 Pressure ulcer of left ankle, stage 3; L89.893 Pressure ulcer of other site, stage 3; L89.623 Pressure ulcer of left heel, stage 3; L89.613 Pressure ulcer of right heel, stage 3; L89.892 Pressure ulcer of other site, stage 2; L97.321 Non-pressure chronic ulcer of left ankle limited to breakdown of skin; L98.412 Non-pressure chronic ulcer of buttock with fat layer exposed; L97.825 Non-pressure chronic ulcer of other part of left lower leg with muscle involvement without evidence of necrosis; L03.116 Cellulitis of left lower limb; G82.20 Paraplegia, unspecified; M86.8X8 Other osteomyelitis, other site; F12.10 Cannabis abuse, uncomplicated; Z98.890 Other specified postprocedural states; Z87.891 Personal history of nicotine dependence; Z90.49 Acquired absence of other specified parts of digestive tract; Z79.899 Other long term (current) drug therapy
CPT/HCPCS: 11043; 97597; A4663; A6021; A6212; A6446

== ENCOUNTER 2019-03-27 10:01 | Day surgery (SDC) | payer MEDICARE, MEDICAID ==
[2019-03-27] MEDS ORDERED: CADEXOMER IODINE TP ONE (11:38)
== END 2019-03-27 12:18 | disposition home or self-care (01) ==
LOC: WOUND CARE 10:01
PROVIDERS: ATTEND Surgery
DX: L89.314 Pressure ulcer of right buttock, stage 4 (principal); L89.523 Pressure ulcer of left ankle, stage 3; L89.893 Pressure ulcer of other site, stage 3; L89.623 Pressure ulcer of left heel, stage 3; L89.613 Pressure ulcer of right heel, stage 3; L89.892 Pressure ulcer of other site, stage 2; L97.321 Non-pressure chronic ulcer of left ankle limited to breakdown of skin; L98.412 Non-pressure chronic ulcer of buttock with fat layer exposed; L97.825 Non-pressure chronic ulcer of other part of left lower leg with muscle involvement without evidence of necrosis; L03.116 Cellulitis of left lower limb; G82.20 Paraplegia, unspecified; M86.8X8 Other osteomyelitis, other site; F12.10 Cannabis abuse, uncomplicated; Z98.890 Other specified postprocedural states; Z87.891 Personal history of nicotine dependence; Z90.49 Acquired absence of other specified parts of digestive tract; Z79.899 Other long term (current) drug therapy
CPT/HCPCS: 97597; A6223; A4663; A6212; A6446

== ENCOUNTER 2019-04-10 10:20 | Day surgery (SDC) | payer MEDICARE, MEDICAID | END 2019-04-10 12:20 | disposition home or self-care (01) | LOC: WOUND CARE 10:20 | PROVIDERS: ATTEND Surgery | DX: L89.314 Pressure ulcer of right buttock, stage 4 (principal); L89.523 Pressure ulcer of left ankle, stage 3; L89.893 Pressure ulcer of other site, stage 3; L89.623 Pressure ulcer of left heel, stage 3; L89.613 Pressure ulcer of right heel, stage 3; L89.892 Pressure ulcer of other site, stage 2; L97.321 Non-pressure chronic ulcer of left ankle limited to breakdown of skin; L98.412 Non-pressure chronic ulcer of buttock with fat layer exposed; L97.825 Non-pressure chronic ulcer of other part of left lower leg with muscle involvement without evidence of necrosis; L03.116 Cellulitis of left lower limb; G82.20 Paraplegia, unspecified; M86.8X8 Other osteomyelitis, other site; F12.10 Cannabis abuse, uncomplicated; Z98.890 Other specified postprocedural states; Z87.891 Personal history of nicotine dependence; Z90.49 Acquired absence of other specified parts of digestive tract; Z79.899 Other long term (current) drug therapy | CPT/HCPCS: 97597 ==

== ENCOUNTER 2019-07-23 13:00 | Outpatient (CLI) | payer MEDICARE, MEDICAID ==
[2019-07-23 14:52] LABS: BASOPHILS # (AUTO) 0.1 X10'3 (0-0.2); BASOPHILS % (AUTO) 0.9 % (0-1); EOSINOPHILS # (AUTO) 0.4 X10'3 (0-0.9); EOSINOPHILS % (AUTO) 4.6 % (0-6); HEMATOCRIT 37.3 % (42.0-52.0); HEMOGLOBIN 11.8 g/dl (14.0-17.9); LYMPHOCYTES % (AUTO) 25.9 % (21-51); MEAN CORPUSCULAR HEMOGLOBIN 24.5 PG (27.0-31.0); MEAN CORPUSCULAR HGB CONC 31.6 g/dL (33.0-36.5); MEAN CORPUSCULAR VOLUME 77.5 FL (78-98); MEAN PLATELET VOLUME 7.2 FL (7.4-10.4); MONOCYTES # (AUTO) 0.5 X10'3 (0-0.9); MONOCYTES % (AUTO) 6.3 % (2-12); NEUTROPHILS # (AUTO) 4.8 X10'3 (1.8-7.7); NEUTROPHILS % (AUTO) 62.3 % (42-75); PLATELET COUNT 393 X10'3 (140-440); RED BLOOD COUNT 4.81 X10'6 (4.70-6.10); WHITE BLOOD COUNT 7.7 X10'3 (4.5-11.0)
[2019-07-23 15:04] LABS: ALANINE AMINOTRANSFERASE 14 U/L (12-78); ALBUMIN 2.9 G/DL (3.4-5.0); ALBUMIN/GLOBULIN RATIO 0.6 (1.1-1.5); ALKALINE PHOSPHATASE 76 IU/L (46-116); ANION GAP 4 (8-16); ASPARTATE AMINO TRANSFERASE 21 U/L (10-37); BILIRUBIN,TOTAL 0.2 MG/DL (0.1-1.0); BLOOD UREA NITROGEN 8 MG/DL (7-18); BUN/CREATININE RATIO 13.6 (5.4-32.0); CALCIUM 8.6 MG/DL (8.5-10.1); CHLORIDE 106 MMOL/L (99-107); CREATININE 0.59 MG/DL (0.60-1.10); GLUCOSE 100 MG/DL (70-104); POTASSIUM 3.4 MMOL/L (3.5-5.1); SODIUM 140 MMOL/L (135-145); TOTAL CARBON DIOXIDE 30.5 MMOL/L (24-32); TOTAL PROTEIN 7.5 G/DL (6.4-8.2); eGFR > 90 ML/MIN
== END 2019-07-23 16:13 | disposition home or self-care (01) ==
LOC: EDSTATUS 13:00 → WOUND CARE 13:00
PROVIDERS: ATTEND Nurse Practitioner
DX: L89.314 Pressure ulcer of right buttock, stage 4 (principal); L89.322 Pressure ulcer of left buttock, stage 2; L89.523 Pressure ulcer of left ankle, stage 3; L89.514 Pressure ulcer of right ankle, stage 4; L89.894 Pressure ulcer of other site, stage 4; L89.623 Pressure ulcer of left heel, stage 3; L89.614 Pressure ulcer of right heel, stage 4; L89.890 Pressure ulcer of other site, unstageable; L03.116 Cellulitis of left lower limb; G82.20 Paraplegia, unspecified; M86.8X8 Other osteomyelitis, other site; F12.10 Cannabis abuse, uncomplicated; Z98.890 Other specified postprocedural states; Z87.891 Personal history of nicotine dependence; Z90.49 Acquired absence of other specified parts of digestive tract; Z79.899 Other long term (current) drug therapy
CPT/HCPCS: 36415; 73590; 73630; 80053; 85025; G0463

== ENCOUNTER 2019-07-29 10:15 | Day surgery (SDC) | payer MEDICARE, MEDICAID | END 2019-07-29 12:51 | disposition home or self-care (01) | LOC: WOUND CARE 10:15 | PROVIDERS: ATTEND Nurse Practitioner | DX: L89.314 Pressure ulcer of right buttock, stage 4 (principal); L89.523 Pressure ulcer of left ankle, stage 3; L89.893 Pressure ulcer of other site, stage 3; L89.614 Pressure ulcer of right heel, stage 4; L89.514 Pressure ulcer of right ankle, stage 4; L89.892 Pressure ulcer of other site, stage 2; L89.620 Pressure ulcer of left heel, unstageable; L97.321 Non-pressure chronic ulcer of left ankle limited to breakdown of skin; L98.412 Non-pressure chronic ulcer of buttock with fat layer exposed; L97.825 Non-pressure chronic ulcer of other part of left lower leg with muscle involvement without evidence of necrosis; L03.116 Cellulitis of left lower limb; G82.20 Paraplegia, unspecified; M86.8X8 Other osteomyelitis, other site; F12.10 Cannabis abuse, uncomplicated; Z98.890 Other specified postprocedural states; Z87.891 Personal history of nicotine dependence; Z90.49 Acquired absence of other specified parts of digestive tract; Z79.899 Other long term (current) drug therapy | CPT/HCPCS: 97597; 97598 ==